=== PATIENT | male | born 1980 | race Caucasian/White ===

== ENCOUNTER 2019-02-27 17:41 | Emergency (ER) | payer BC ==
[~2019-02-27] VITALS: Wt 79.0 kg
[2019-02-27] MEDS ORDERED: AZITHROMYCIN 500 MG TAB PO ONE (19:30)
[2019-02-27] MEDS ORDERED: CEFTRIAXONE 250 MG INJ IM ONE (19:30)
[2019-02-27] MEDS ORDERED: CIPR500T4 PO (20:17)
--- NOTE | 2019-02-27 20:21 | ERD ---
ER Documentation Chief Complaint Chief Complaint DYSURIA X 15 DAYS HPI 39-year-old male who presents with dysuria that he has had for about 2 weeks now. He also states he has occasional discharge from his penis. He does admit to recent protected sex. No fever. No hematuria. No frequency ROS All systems reviewed and are negative except as per history of present illness. Medications Home Meds Active Scripts Ciprofloxacin Hcl* (Ciprofloxacin Hcl*) 500 Mg Tablet, 500 MG PO BID for 7 Days, TAB Prov:NICHELLE AKBAR PA-C 02/27/19 Allergies Allergies: Coded Allergies: No Known Allergy (Unverified , 02/27/19) PMhx/Soc Medical and Surgical Hx: pt denies Medical Hx, pt denies Surgical Hx Hx Alcohol Use: No Hx Substance Use: No Hx Tobacco Use: No Smoking Status: Never smoker FmHx Family History: No diabetes Physical Exam Vitals Vital Signs Date Temp Pulse Resp B/P (MAP) Pulse Ox O2 O2 Flow FiO2 Time Delivery Rate 02/27/19 98.6 81 18 142/77 99 17:47 (98) Physical Exam INITIAL VITAL SIGNS: Reviewed by me GENERAL: Awake, alert and oriented x 4, well appearing, nontoxic, speaking in full sentences. No acute distress HEAD: Atraumatic NECK: Supple. No masses. Full range of motion. No meningismus. No midline tenderness. RESPIRATORY: Clear to auscultation bilaterally. Symmetric chest wall rise. No wheezing or rales. No accessory muscle use. CV: Regular rate and rhythm. No murmurs, rubs, or gallops. ABDOMEN: Soft, non-distended. Nontender. Negative [place]. Negative McBurneys point tenderness. No CVA tenderness bilaterally. No guarding. No rebound. : Deffered. Results 24 hrs Laboratory Tests Test 02/27/19 19:43 Urine Color STRAW Urine Clarity SLIGHTLY CLOUDY Urine pH 6.0 Urine Specific [place] 1.017 Urine Ketones NEGATIVE mg/dL Urine Nitrite NEGATIVE mg/dL Urine Bilirubin NEGATIVE mg/dL Urine Urobilinogen NEGATIVE mg/dL Urine Leukocyte Esterase 2+ Ricky/ul Urine Microscopic RBC 6 /HPF Urine Microscopic WBC 76 /HPF Urine Hemoglobin NEGATIVE mg/dL Urine Glucose NEGATIVE mg/dL Urine Total Protein NEGATIVE mg/dl Current Medications Medications Dose Sig/Nyla Start Time Status Last (Trade) Ordered Route PRN Stop Time Admin Dose Reason Admin Ceftriaxone 250 mg ONCE ONCE 02/27/19 DC 02/27/19 Sodium IM 19:30 20:14 (Rocephin) 02/27/19 19:31 1,000 mg ONCE ONCE 02/27/19 DC 02/27/19 Azithromycin PO 19:30 20:15 (Zithromax) 02/27/19 19:31 Procedures/MDM Patient has UTI which was confirmed on urinalysis. He does state he has recent sex and occasional purulent discharge so I did treat him for gonorrhea chlamydia with ceftriaxone and azithromycin. He is also discharged with Cipro. Urine culture was sent. He was encouraged to follow with primary care for full STD testing. Patient counseled regarding my diagnostic impression and care plan. Prior to discharge all questions answered. Pt agrees with treatment plan and understands strict return precautions. Pt is instructed to follow up with primary care provider within 24-48 hours. Precautionary instructions provided including instructions to return to the ER if not improving or for any worsening or changing symptoms or concerns. Departure Diagnosis: Primary Impression: Cystitis Condition: Stable Patient Instructions: Cystitis Additional Instructions: Llame al doctor LAURA y jovanny albino LOUISE PARA DENTRO DE 1-2 NULL.Dgale a la secretaria que nosotros le instruimos hacer esta louise.Avise o llame si wheeler condicin se empeora antes de la louise. Regresa aqui si peor o no mejor. NICHELLE AKBAR PA-C Feb 27, 2019 20:21
[2019-02-27 20:27] VITALS: BP 133/75; PULSE 77; RESP 16
== END 2019-02-27 20:27 | disposition home or self-care (01) ==
LOC: FTE 17:41
DX: N30.90 Cystitis, unspecified without hematuria (principal)
CPT/HCPCS: 81001; 87086; 87591; 96372; 99284; J0696